=== PATIENT | female | born 1985 | race Caucasian/White ===

== ENCOUNTER 2021-05-03 03:43 | Emergency (ER) | payer OTHER, SELFPAY ==
--- NOTE | ~2021-05-03 | XR_ITS ---
EXAMINATION: [id number] DATE: 05/03/2021 04:31 INDICATION: Right chest and axillary pain TECHNIQUE: A frontal inspiratory view of the chest and 3 views of the right ribs were obtained. COMPARISON: None FINDINGS: No rib fractures identified. No pneumothorax. No focal infiltrates, pleural effusion or pulmonary samra ma. Cardiomediastinal silhouette is normal. IMPRESSION: 1. No rib fracture or acute cardiopulmonary disease. Reviewed, dictated and finalized at location A.
[2021-05-03 04:00] VITALS: BP 126/84; PULSE 78; RESP 20; TEMP 36.8; O2SAT 99
--- NOTE | 2021-05-03 04:03 | ED.CHESTPAIN ---
HPI - Chest Pain General Chief Complaint: Unspecified Stated Complaint: RIB PAIN Time Seen by Provider: 05/03/21 04:03 Source: patient Mode of arrival: ambulatory Limitations: no limitations History of Present Illness HPI narrative: 35-year-old woman comes in today complaining of right-sided chest pain that is sharp and radiates to her sternum. She states that the pain started earlier today. The pain is worse with taking a deep breath and with certain movements. She denies injury other than recently after taking an exercise regimen. She denies hemoptysis, cough, cold symptoms, fever, vomiting and diarrhea. MD complaint: chest pain Onset (ago): hour(s) Timing of current episode: constant and still present Prior episodes: Yes Onset: during rest Pain location: right chest and lateral Pain radiation: other (sternum) Severity: severe Quality: sharp Relieving factors: remaining still Exacerbating factors: inspiration and palpation Treatment prior to arrival: none Risk Factors Coronary artery disease risk factors: hypertension Thoracic aortic dissection risk factors: none Related Data On Oral Contraceptives: No Home Medications Medication Instructions Recorded Confirmed hydroxyzine HCl 10 mg PO DAILY 05/03/21 05/03/21 irbesartan 300 mg PO DAILY 05/03/21 05/03/21 venlafaxine 150 mg PO DAILY 05/03/21 05/03/21 Allergies Allergy/AdvReac Type Severity Reaction Status Date / Time No Known Allergies Allergy Verified 05/03/21 04:05 Review of Systems Review of Systems: All systems reviewed & are unremarkable except as noted in HPI and below Constitutional: Constitutional: Denies chills ENT: Denies nasal congestion and Denies sore throat Cardiovascular: Cardiovascular: Reports chest pain and Denies radiating jaw, neck or arm pain Respiratory: Respiratory: Denies cough, Denies dyspnea and Denies wheezing Gastrointestinal: Gastrointestinal: Denies abdominal pain, Denies diarrhea, Denies nausea and Denies vomiting Musculoskeletal: Musculoskeletal: Denies arthralgias and Denies joint swelling Integumentary/Breasts: Skin/Breast: Denies pruritus, Denies erythema and Denies rash Neurologic: Denies vertigo, Denies dizziness and Denies syncope Endocrine: Endocrine: Denies fatigue and Denies polydipsia Hematologic/Lymphatic: Hematologic/Lymphatic: Denies easy bleeding and Denies easy bruising Allergic/Immunologic: Allergic/Immunologic: Denies lip swelling and Denies throat swelling [facility] Past Medical History Medical History (Updated 05/03/21 @ 05:58 by Ben Muñiz MD) Anxiety Depression Hypertension Surgical History Surgical History (Updated 05/03/21 @ 04:12 by Ben Muñiz MD) History of tubal ligation Social History Social History (Updated 05/03/21 @ 04:13 by Ben Muñiz MD) Tobacco type: e-cigarettes/vaping Living arrangements: with family Exam Const: General: healthy appearing and alert Orientation/consciousness: patient oriented x3 Limitations: no limitations Other: moderate acute distress. HENMT: Mouth: Yes moist mucous membranes Throat: posterior oropharynx normal Eyes: Conjunctivae: conjunctivae normal Pupils: Equal, round and reactive pupils present EOM: EOMs intact bilaterally Chest: Other: No chest wall tenderness or crepitus. Resp: Effort & Inspection: normal respiratory effort and not labored Auscultation: clear to auscultation bilaterally, no rales, no rhonchi and no wheezes Cardio: Rate: regular rate Rhythm: regular rhythm Heart sounds: no murmurs Skin: General skin exam: normal color, no jaundice and no pallor Rashes: no rashes Neuro: General: patient oriented x3, moves all extremities, no focal motor deficits and CN's II-XI intact bilaterally Speech: normal speech Gait exam (Neuro): Normal gait present Extrem: General: normal to inspection and no clubbing, cyanosis or edema Psych: Appearance: grossly normal and well kempt Mental Status:
[2021-05-03] MEDS: HYDROcodone/acetaminophen (*CRX) 5-325 MG TABLET 1 TAB PO (04:19)
[2021-05-03 06:02] VITALS: BP 130/78; PULSE 78; RESP 20; TEMP 36.4; O2SAT 97
== END 2021-05-03 06:07 | disposition home or self-care (01) ==
PROVIDERS: Emergency Provider Emergency Medicine
DX: S29.011A Strain of muscle and tendon of front wall of thorax, initial encounter (principal)
CPT/HCPCS: 71101; 99283; A9270